=== PATIENT | female | born 1980 | race Caucasian/White ===

== ENCOUNTER 2021-08-18 10:18 | Emergency (ER) | payer OTHER | END 2021-08-18 14:33 | disposition left against medical advice (07) | LOC: ER1 10:18 | DX: M54.50 Low back pain, unspecified (principal); F17.290 Nicotine dependence, other tobacco product, uncomplicated; Z88.1 Allergy status to other antibiotic agents; Z88.5 Allergy status to narcotic agent | CPT/HCPCS: 72100; 96374; 96375; 99283; J1885; J2930 ==